=== PATIENT | male | born 1970 | race Caucasian/White ===

== ENCOUNTER 2021-06-16 12:45 | Inpatient (IN) ==
[2021-06-16] MEDS ORDERED: Albuterol HFA INHALER 8 gm MDI INH ONE ×2 (13:08→15:44)
[2021-06-16] MEDS ORDERED: Dexamethasone IV 4 MG/ML VIAL 1 ml VIAL IV SLOW PU ONE (13:08)
[2021-06-16 14:10] LABS: Venous Bicarbonate HCO3 23.7 mmol/L (24-28)
[2021-06-16 14:16] LABS: ABS Lymphocytes 1.2 10^3/ul (1.0-4.8); ABS Monocytes 0.5 10^3/ul (0-0.8); ABS Neutrophils 3.9 10^3/ul (1.5-7.7); Eosinophil % 0.1 %; Hematocrit 44 % (42-52); Hemoglobin 15.4 g/dL (14.0-18.0); Mean Corpuscular HGB Conc 35 g/dL (31-36); Mean Corpuscular Hemoglobin 31 pg (27-31); Mean Corpuscular Volume 90 fL (80-94); Mean Platelet Volume 7.8 fL (7.4-10.4); Platelet Count 172 10^3/uL (150-450); Red Blood Count 4.91 10^6 /uL (4.18-5.48); Red Cell Distribution Width 14 % (10-15); White Blood Count 5.6 10^3/uL (3.5-10.8)
[2021-06-16 14:28] LABS: Activated Partial Thrombo Time 28.8 seconds (26.0-38.0); INR 1.05 (0.86-1.15)
[2021-06-16] MEDS ORDERED: NS 0.9% 1000 ml BAG 1,000 ML IV ONE (14:32)
[2021-06-16 14:39] LABS: Troponin I 0.01 ng/mL (<0.03)
[2021-06-16 14:41] LABS: ALT 61 U/L (7-52); Albumin 3.7 g/dL (3.2-5.2); Albumin/Globulin Ratio 1.2 (1-3); Alkaline Phosphatase 48 U/L (35-149); Blood Urea Nitrogen 16 mg/dL (6-24); C Reactive Protein 65.72 mg/L (<8.01); CO2 Carbon Dioxide 23 mmol/L (22-32); Calcium 8.6 mg/dL (8.6-10.3); Chloride 104 mmol/L (101-111); EGFR African American 94.2 (>60); EGFR Non-African American 77.9 (>60); Globulin 3.2 g/dL (2-4); Glucose 106 mg/dL (70-100); Sodium 136 mmol/L (135-145); Total Protein 6.9 g/dL (6.4-8.9)
[2021-06-16 14:54] LABS: Rapid COVID-19 Molecular Detected (Undetected)
[2021-06-16 15:14] LABS: Anion Gap 9 mmol/L (2-11)
[2021-06-16 15:45] LABS: Influenza A Molecular Negative (Negative); Influenza B Molecular Negative (Negative)
[2021-06-16 17:17] LABS: Ferritin > 1500.0 ng/mL (24-336)
[2021-06-16] MEDS ORDERED: NS 0.9% 1000 ml BAG 1,000 ML IV SCH (18:00)
[2021-06-16] MEDS ORDERED: Albuterol HFA INHALER 8 gm MDI INH PRN (18:26)
[2021-06-16 18:28] LABS: Potassium Redraw 4.1 mmol/L (3.5-5.0)
[2021-06-16] MEDS ORDERED: Enoxaparin 40 MG/0.4 ML SYR SUBCUT SCH (21:00)
[2021-06-17 10:54] LABS: ABS Lymphocytes 0.7 10^3/ul (1.0-4.8); ABS Monocytes 0.5 10^3/ul (0-0.8); ABS Neutrophils 3.1 10^3/ul (1.5-7.7); Hematocrit 46 % (42-52); Hemoglobin 15.9 g/dL (14.0-18.0); Lymphocyte % 15.9 %; Mean Corpuscular HGB Conc 35 g/dL (31-36); Mean Corpuscular Hemoglobin 31 pg (27-31); Mean Corpuscular Volume 90 fL (80-94); Mean Platelet Volume 7.9 fL (7.4-10.4); Platelet Count 206 10^3/uL (150-450); Red Blood Count 5.09 10^6 /uL (4.18-5.48); Red Cell Distribution Width 14 % (10-15); White Blood Count 4.2 10^3/uL (3.5-10.8)
[2021-06-17 11:09] LABS: Albumin 3.8 g/dL (3.2-5.2); Albumin/Globulin Ratio 1.2 (1-3); EGFR African American 111.9 (>60); EGFR Non-African American 92.5 (>60); Globulin 3.3 g/dL (2-4); Potassium 4.3 mmol/L (3.5-5.0); Total Bilirubin 0.8 mg/dL (0.2-1.0); Total Protein 7.1 g/dL (6.4-8.9)
[2021-06-17] MEDS ORDERED: Iohexol 350 (CONTRAST) 500 ML MDV IV ONE (11:42)
[2021-06-17 12:04] LABS: Magnesium 2.2 mg/dL (1.9-2.7)
[2021-06-17] MEDS: ceFAZolin 1 GM Q8H (ADVAN) IVPB SCH ×2 (12:13→21:14)
[2021-06-17 12:56] LABS: Troponin I 0.01 ng/mL (<0.03)
[2021-06-17] MEDS: Enoxaparin 40 MG/0.4 ML SYR SUBCUT SCH (21:14)
[2021-06-18] MEDS: ceFAZolin 1 GM Q8H (ADVAN) IVPB SCH ×3 (02:32→20:06)
[2021-06-18] MEDS ORDERED: Remdesivir 100 mg Vial 200 MG in NS 0.9% 250 ml 210 ML IV ONE (09:56)
[2021-06-18 12:07] LABS: Albumin 3.6 g/dL (3.2-5.2); Albumin/Globulin Ratio 1.2 (1-3); C Reactive Protein 13.63 mg/L (<8.01); Calcium 8.9 mg/dL (8.6-10.3); EGFR African American 103.6 (>60); EGFR Non-African American 85.7 (>60); Globulin 3.1 g/dL (2-4); Potassium 3.9 mmol/L (3.5-5.0); Total Bilirubin 0.8 mg/dL (0.2-1.0); Total Protein 6.7 g/dL (6.4-8.9)
[2021-06-18 13:43] LABS: TSH Ultra Thyroid Stim Horm 0.79 mcIU/mL (0.34-5.60)
[2021-06-18] MEDS: Enoxaparin 40 MG/0.4 ML SYR SUBCUT SCH (20:06)
[2021-06-19] MEDS: ceFAZolin 1 GM Q8H (ADVAN) IVPB SCH ×2 (03:15→12:34)
[2021-06-19 07:30] LABS: Albumin 3.2 g/dL (3.2-5.2); Albumin/Globulin Ratio 1.1 (1-3); Calcium 8.7 mg/dL (8.6-10.3); EGFR African American 116.6 (>60); EGFR Non-African American 96.3 (>60); Globulin 2.9 g/dL (2-4); Potassium 4.2 mmol/L (3.5-5.0); Total Bilirubin 0.7 mg/dL (0.2-1.0); Total Protein 6.1 g/dL (6.4-8.9)
[2021-06-19 07:38] LABS: INR 1.06 (0.86-1.15)
[2021-06-19] MEDS ORDERED: Remdesivir 100 mg Vial 100 MG in NS 0.9% 250 ml 230 ML IV SCH (09:00)
[2021-06-19 15:55] VITALS: BP 142/88
[2021-06-20] MEDS ORDERED: Aspirin EC 81 mg TAB.EC (enteric coated) PO SCH (09:00)
== END 2021-06-19 17:35 | disposition home or self-care (01) | DRG 137 ==
LOC: ED 12:45 → SUATTDRO 21:26 → MED 21:26
PROVIDERS: ADMIT Hospitalist; ATTEND Internal Medicine